=== PATIENT | male | born 2000 | race Two or more races ===

== ENCOUNTER 2022-07-03 11:17 | Emergency (ER) | payer MEDICAID, OTHER ==
[~2022-07-03] VITALS: Ht 190.5 cm; Wt 80.0 kg
[2022-07-03 12:49] VITALS: BP 128/82
[2022-07-03] MEDS ORDERED: ACETAMINOPHEN 500 MG TAB PO ONE (13:30)
[2022-07-03] MEDS ORDERED: CYCL-837 PO (15:33)
[2022-07-03] MEDS ORDERED: IBUP800T26 PO (15:33)
== END 2022-07-03 15:34 | disposition home or self-care (01) ==
LOC: ER 11:17
DX: M25.561 Pain in right knee (principal); V11.4XXA Pedal cycle driver injured in collision with other pedal cycle in traffic accident, initial encounter; Y93.89 Activity, other specified; Y92.89 Other specified places as the place of occurrence of the external cause; Y99.8 Other external cause status
CPT/HCPCS: 71045; 72040; 72170; 73562; 76700